=== PATIENT | female | born 1990 | race Hispanic/Latino ===

== ENCOUNTER 2017-11-01 00:15 | Emergency (ER) | payer OTHER ==
[2017-11-01] MEDS ORDERED: Sodium Chloride 0.9% 1,000 ML IV STA (01:26)
--- NOTE | 2017-11-01 01:30 | ED PDOC ---
HPI: Headache Time Seen by Provider: 11/01/17 00:59 Chief Complaint (Nursing): GI Problem Chief Complaint (Provider): headache History Per: Patient History/Exam Limitations: no limitations Onset/Duration Of Symptoms: Hrs Current Symptoms Are (Timing): Still Present Associated Symptoms: Photophobia, Nausea, Vomiting Additional History Per: Patient Additional Complaint(s): 27 y/o female presents with headache x 5 hours. Patient states headache started as a dull headache, and got progressively worse, with associated photophobia, nausea and vomiting. Patient states she was unable to tolerate Excedrin due to vomiting, and feels weak. Patient notes similar headaches in past, states she gets bad headaches like this 1-2 times per year. Denies fever , dizziness, neck pain, extremity numbness/weakness, chest pain, shortness of breath, palpitations, abdominal pain. Past Medical History Reviewed: Historical Data, Nursing Documentation, Vital Signs Vital Signs: Last Vital Signs Temp 97.7 F 11/01/17 00:48 Pulse 72 11/01/17 00:48 Resp 17 11/01/17 00:48 BP 124/78 11/01/17 00:48 Pulse Ox 98 11/01/17 00:48 - Medical History PMH: Migraine - Surgical History Surgical History: No Surg Hx - Family History Family History: States: No Known Family Hx - Living Arrangements Living Arrangements: With Family - Home Medications Home Medications: Ambulatory Orders Medication Instructions Recorded Ondansetron ODT [Zofran ODT] 4 mg PO Q8 PRN #10 odt 11/01/17 - Allergies Allergies/Adverse Reactions: Allergies Allergy/AdvReac Type Severity Reaction Status Date / Time No Known Allergies Allergy Verified 11/01/17 00:50 Review of Systems ROS Statement: Except As Marked, All Systems Reviewed And Found Negative Gastrointestinal: Positive for: Nausea, Vomiting Neurological: Positive for: Headache Physical Exam - Reviewed Nursing Documentation Reviewed: Yes Vital Signs Reviewed: Yes - Physical Exam Appears: Positive for: Well, Non-toxic, No Acute Distress Head Exam: Positive for: ATRAUMATIC, NORMAL INSPECTION, NORMOCEPHALIC Skin: Positive for: Normal Color Eye Exam: Positive for: Normal appearance, EOMI, PERRL ENT: Positive for: Normal ENT Inspection Cardiovascular/Chest: Positive for: Regular Rate, Rhythm Respiratory: Positive for: Normal Breath Sounds Gastrointestinal/Abdominal: Positive for: Normal Exam Back: Positive for: Normal Inspection Extremity: Positive for: Normal ROM Neurologic/Psych: Positive for: Alert, Oriented. Negative for: Motor/Sensory Deficits - Laboratory Results Result Diagrams: 11/01/17 01:42 11/01/17 01:42 - ECG O2 Sat by Pulse Oximetry: 98 - Progress ED Course And Treament: labs, IV fluids, IV reglan, IV toradol On re-eval, patient resting comfortably; states headache resolved. Tolerating PO. Patient educated on findings, discharged with rx Zofran. States she will continue Excedrin PRN. Follow up PMD/Neuro Return precautions given. Disposition - Clinical Impression Clinical Impression: Headache - Patient ED Disposition Is Patient to be Admitted: No Counseled Patient/Family Regarding: Studies Performed, Diagnosis, Need For Followup, Rx Given - Disposition Referrals: [facility] [Outside] Disposition: Routine/Home Disposition Time: 03:16 Condition: IMPROVED Prescriptions: Ondansetron ODT [Zofran ODT] 4 mg PO Q8 PRN #10 odt PRN Reason: Nausea/Vomiting Instructions: Migraine Headache (DC) Forms: [employer] (E[place]ian)
[2017-11-01 01:45] LABS: BASO # 0.1 K/uL (0.0-0.2); BASO % 0.5 % (0.0-2.0); EOS % 0.2 % (0.0-4.0); HEMOGLOBIN 14.6 g/dL (12.0-16.0); LYMPH # 1.7 K/uL (1.0-4.3); LYMPH % 12.2 % (20.0-40.0); MEAN CELL VOLUME 93.9 fl (81.0-99.0); MEAN CORPUSCULAR HEMOGLOBIN 32.1 pg (27.0-31.0); MEAN CORPUSCULAR HGB CONC 34.2 g/dL (33.0-37.0); MEAN PLATELET VOLUME 7.3 fl (7.2-11.7); MONO # 0.5 K/uL (0.0-0.8); MONO % 3.7 % (0.0-10.0); NEUT # 11.7 K/uL (1.8-7.0); NEUT % 83.4 % (50.0-75.0); RBC 4.53 Mil/uL (3.80-5.20); RED CELL DISTRIBUTION WIDTH 12.5 % (11.5-14.5); WHITE BLOOD COUNT 14.1 K/uL (4.8-10.8)
[2017-11-01 01:53] LABS: ALB/GLOB RATIO 1.2 (1.0-2.1); ALBUMIN 4.4 g/dL (3.5-5.0); ALT/SGPT 41 U/L (9-52); AST/SGOT 28 U/L (14-36); BLOOD UREA NITROGEN 14 mg/dl (7-17); CALCIUM 9.8 mg/dL (8.4-10.2); GFR AFRICAN-AMERICAN > 60; GFR NON-AFRICAN AMERICAN > 60
[2017-11-01 03:39] VITALS: BP 124/65; PULSE 77; RESP 14; TEMP 98; O2SAT 99
== END 2017-11-01 03:40 | disposition home or self-care (01) ==
LOC: H.ER 00:15
DX: R51 Headache (principal)
CPT/HCPCS: 80053; 81025; 85025; 96360; 99283; J1885; J2765; J7040